=== PATIENT | male | born 1960 | race Caucasian/White ===

== ENCOUNTER → 2016-04-19 | Outpatient (CLI) | payer OTHER ==
[~2016-04-19] MED LIST: ALBUTEROL17 GM INH; DAKIN'S MODIF1000 ML EXT; DOXYCYCLINE150 MG PO; MEDROL4 MG/DOSE- PO; NORFLEX100 M1 PO; NORVASC PO; PERCOCET5/325 PO; TOPROL XL PO; TRAMADOL HCL50 M2 PO; ZOLOFT PO
--- NOTE | ~2016-04-19 | CT4 ---
[facility] A Service of [facility] RADIOLOGY TEXT RESULTS PATIENT: RENAN MAGALLANES LOCATION: [facility] : 58 UNIT #: [id number] AGE: [address]: Felix Mederos MD SEX: M ORDER DR: [id number] [facility] [address]. [place], [place] [address] [id number] O MR#: [id number] Acc #: [id number] NAME: RENAN MAGALLANES. : 1960 SEX: M STUDY DATE/TIME: 04/19/2016 16:34 UNIT: [facility] ROOM: STUDY DESCRIPTION: CT Abd and Pelv Wo Cont Attending Physician: Felix Mederos M.D. Referring Physician: Felix Mederos M.D. Ordering Physician: Felix Mederos M.D. Primary Care Physician: Eddi Robertson M.D. MEDICAL IMAGING REPORT This report is preliminary unless electronic signature is present EXAM CT abdomen and pelvis without contrast INDICATIONS Abdominal pain for the past 6 months. Orders states follow up adrenal adenomas. PROCEDURE Unenhanced CT of the abdomen and pelvis. COMPARISON 04/30/[address] exam was performed with one or more of the following radiation dose reduction techniques: automatic exposure control, adjustment of mA and/or kV according to patient size, and iterative reconstruction. FINDINGS Abdomen without contrast: 6 mm noncalcified subpleural nodule, right lower lobe. This nodule probably not included on the patient's previous studies. Otherwise included lung bases are clear. The liver, spleen, kidneys, pancreas unremarkable. A few tiny stones or sludge in the gallbladder. 3.7 cm benign right adrenal adenoma. 3.9 cm benign left adrenal adenoma. Bowel loops are nondilated. Moderate colonic stool. Appendix is normal. Pelvis without contrast: No pelvic mass or fluid. No aggressive appearing bone lesion. IMPRESSION [facility] A Service of [facility] RADIOLOGY TEXT RESULTS PATIENT: RENAN MAGALLANES LOCATION: [facility] : 58 UNIT #: [id number] AGE: [address]: Felix Mederos MD SEX: M ORDER DR: 1. Bilateral benign adrenal adenomas. No additional followup is required. 2. Minimal uncomplicated cholelithiasis. 3. Moderate colonic stool burden. Dictated by... Wolf Hall M.D. THIS IS AN ELECTRONICALLY VERIFIED REPORT Wolf Hall M.D. at 04/21/2016 7:53 AM [facility] TD: 04/20/2016 11:25 JOB #: [id number] MEDICAL IMAGING REPORT COPY
== END | disposition home or self-care (01) ==
LOC: CCAT 15:43
DX: D35.02 Benign neoplasm of left adrenal gland (principal); D35.01 Benign neoplasm of right adrenal gland; Z88.0 Allergy status to penicillin
CPT/HCPCS: 74176